=== PATIENT | female | born 1945 | race Caucasian/White ===

== ENCOUNTER → 2017-01-15 | Outpatient (CLI) | payer MEDICARE, OTHER | LOC: CT 12-03 09:00 | DX: R22.1 Localized swelling, mass and lump, neck (principal) | CPT/HCPCS: 36415; 70491; 82565; 84520; J7050; Q9962 ==

== ENCOUNTER → 2020-09-13 | Outpatient (CLI) | payer MEDICARE, OTHER ==
[~2020-09-13] MED LIST: ABILIFY 2 MG TAB2 MG PO; ALLEGRA ALLERG180 MG PO; ALPRAZOLAM0.5 MG PO; ASPIR-LOW81 MG PO; BUTALB-ACETAMI1 EAC1 PO; CENTRUM SILVER1 EAC4 PO; CRESTOR 10 MG T10 MG PO; HYDROCODON-ACE1 EAC3 PO; MAXIPIME 2 GM VI2 GM INJ; NORVASC 5 MG TAB5 MG PO; SIVEXTRO200 M1 PO; VENLAFAXINE HC225 MG PO; VITAMIN D250000 UNIT PO
== END ==
LOC: KOH-I 09:35
DX: S32.019A Unspecified fracture of first lumbar vertebra, initial encounter for closed fracture (principal); M51.36 Other intervertebral disc degeneration, lumbar region; W19.XXXA Unspecified fall, initial encounter
CPT/HCPCS: 72100

== ENCOUNTER → 2020-09-16 | Outpatient (CLI) | payer MEDICARE, OTHER | LOC: MRI 11:03 | DX: S32.019A Unspecified fracture of first lumbar vertebra, initial encounter for closed fracture (principal); M51.36 Other intervertebral disc degeneration, lumbar region | CPT/HCPCS: 72148 ==

== ENCOUNTER → 2021-04-09 | Outpatient (CLI) | payer MEDICARE, OTHER ==
[~2021-04-09] VITALS: Ht 175.3 cm; Wt 89.8 kg
== END ==
LOC: OPSV 04-06 12:00
DX: S32.019A Unspecified fracture of first lumbar vertebra, initial encounter for closed fracture (principal); M81.0 Age-related osteoporosis without current pathological fracture
CPT/HCPCS: 36415; 96365; J3489

== ENCOUNTER → 2022-02-18 | Outpatient (CLI) | payer MEDICARE | LOC: KOH-I 13:42 | DX: M25.552 Pain in left hip (principal) | CPT/HCPCS: 73502 ==

== ENCOUNTER → 2022-02-21 | Outpatient (CLI) | payer MEDICARE | LOC: RAD 10:59 | DX: M54.16 Radiculopathy, lumbar region (principal); M25.552 Pain in left hip; M48.56XA Collapsed vertebra, not elsewhere classified, lumbar region, initial encounter for fracture; M43.17 Spondylolisthesis, lumbosacral region | CPT/HCPCS: 72100 ==

== ENCOUNTER → 2022-03-01 | Outpatient (CLI) | payer MEDICARE | LOC: MAMO 13:58 | DX: Z12.31 Encounter for screening mammogram for malignant neoplasm of breast (principal) | CPT/HCPCS: 77063; 77067 ==